=== PATIENT | male | born 1950 | race African-American/Black ===

== ENCOUNTER 2017-03-17 10:57 | Inpatient (IN) | payer MEDICARE, OTHER ==
[2017-03-17] MEDS ORDERED: Albuterol Sulfate 2.5 mg/0.5 ml Neb ONE ×3 (11:18)
[2017-03-17 11:27] LABS: Mean Platelet Volume 6.1 fL (7.4-10.4); Red Blood Cell (RBC) Count 4.82 mill/uL (4.70-6.10); White Blood Cell (WBC) Count 5.3 thou/uL (4.8-10.8)
[2017-03-17 11:39] LABS: ALT (SGPT) 17 U/L (8-55); AST (SGOT) 20 U/L (5-34); Alkaline Phosphatase 74 U/L (40-150); Anion Gap 10 mmol/L (10-20); BUN (Urea Nitrogen) 10 mg/dL (8.4-25.7); Bilirubin, Total 0.4 mg/dL (0.2-1.2); Calc. Creatinine Clearance 0 mL/min (70-130); Calcium 9.9 mg/dL (7.8-10.44); Carbon Dioxide 29 mmol/L (23-31); Chloride 103 mmol/L (98-107); Estimated GFR-MDRD Greater than 90; Globulin 3.7 g/dL (2.4-3.5); Protein, Total 7.7 g/dL (5.8-8.1)
[2017-03-17 11:47] LABS: Neutrophil 39 % (42-75); Reactive Lymphocytes 9 % (0-10)
[2017-03-17 12:08] LABS: Magnesium 1.9 mg/dL (1.6-2.6); Phosphorus 3.4 mg/dL (2.3-4.7)
[2017-03-17 12:15] LABS: Troponin I 0.011 ng/mL (< 0.028)
--- NOTE | 2017-03-17 12:44 | RAD ---
RADIOGRAPH CHEST 1 VIEW: HISTORY: 67-year-old male with dyspnea and productive cough. FINDINGS: There is hyperinflation of the lungs, consistent with COPD. The thoracic aorta is tortuous and ecta tic. There is no evidence of air space density, pneumothorax, or pulmonary edema. The lateral cost ophrenic angles are sharp. There is no cardiomegaly. IMPRESSION: 1. No acute pulmonary findings. 2. Emphysema. 3. Ectasia of thoracic aorta. samm [] POS: EUNICE
[2017-03-17] MEDS ORDERED: Acetaminophen 325 MG TAB PO PRN ×2 (13:09→13:55)
[2017-03-17] MEDS ORDERED: Ondansetron HCl/PF 4 MG/2 ML Vial IVP PRN ×2 (13:10→13:55)
[2017-03-17] MEDS ORDERED: Ondansetron ODT 4 MG TAB PO PRN ×2 (13:10→13:55)
[2017-03-17] MEDS ORDERED: Loratadine 10 MG TAB PO PRN (13:53)
[2017-03-17] MEDS ORDERED: Eucerin (Mineral Oil/Petrolatum,White) 30 gm Jar TOP PRN (13:53)
[2017-03-17] MEDS ORDERED: HYDROcodone/Acetaminophen 5/325 mg Tablet PO PRN (13:53)
[2017-03-17] MEDS ORDERED: Polyethylene Glycol 3350 17 GM Packet PO PRN (13:53)
[2017-03-17] MEDS ORDERED: Calcium Carbonate 500 MG ChewTAB PO PRN (13:55)
[2017-03-17] MEDS ORDERED: Milk Of Magnesia 30 ML UDCUP PO PRN (13:55)
[2017-03-17] MEDS ORDERED: Mag-Al 1200 mg/1200 mg/30 ML UDCUP PO PRN (13:55)
[2017-03-17] MEDS ORDERED: Bisacodyl 10 MG SUPP PR PRN (13:55)
[2017-03-17] MEDS ORDERED: Senokot 8.6 MG TAB PO PRN (13:55)
[2017-03-17 14:21] VITALS: BMI 22.8
[2017-03-17] MEDS: cefTRIAXone\\ROCEPHIN 1 GM in Sodium Chloride 0.9% 100 ML IVPB SCH (15:01)
[2017-03-17] MEDS: Nicotine 14 MG PATCH TD SCH (15:11)
[2017-03-17] MEDS: Azithromycin 500 MG in Sodium Chloride 0.9% 250 ML 250 ML IVPB SCH (15:56)
[2017-03-17] MEDS: Calcium Carbonate + Vit D 1 TAB PO SCH (17:25)
[2017-03-17] MEDS ORDERED: methylPREDNISolone Sod Succ/PF 125 MG/2 ML VIAL IVP SCH (18:00)
[2017-03-17] MEDS: Mometasone/Formoterol 120 PUFF INHALER INH SCH (19:52)
[2017-03-17] MEDS: Docusate 100 MG CAP PO SCH (20:38)
[2017-03-17] MEDS: guaiFENesin ER 600 MG TAB PO SCH (20:38)
[2017-03-17] MEDS: Famotidine 20 MG TAB PO SCH (20:38)
[2017-03-17] MEDS: Enoxaparin Sodium 30 MG/0.3 ML SYRINGE SC SCH (20:39)
--- NOTE | 2017-03-17 22:33 | HP ---
DATE OF ADMISSION: 03/17/2017 PRIMARY CARE PHYSICIAN: Dr. Daniel. CODE STATUS: FULL CODE. SURROGATE DECISION-MAKER: Patient makes his own decisions with the help of his family. CHIEF COMPLAINT: Shortness of breath. HISTORY OF PRESENT ILLNESS: Patient is a 67-year-old male with ongoing tobacco abuse, presented to the emergency room with the above complaints. Over the last 2 to 3 weeks, the patient had developed gradual worsening shortness of breath along with chest tightness and wheezing. His symptoms progressively got worse. Two weeks ago, he was seen by his primary care physician. He received a steroid shot. He also received a flu shot at the same time. His symptoms, however, did not improve. Due to progressive worsening shortness of breath, he called EMS today. He also had some cough productive of very scanty thick mucus. He denies any fevers, chills, orthopnea, paroxysmal nocturnal dyspnea, or leg swelling. He denies similar symptoms in the past. When EMS arrived, his oxygen saturation was 81% on room air. He received multiple nebulizer treatments along with steroids and was brought in to the emergency room. PAST MEDICAL HISTORY: 1. History of asthma during childhood. He has not used inhalers since the age of 18. 2. Fifty pack year smoking. 3. Hypertension, currently not taking any medications. 4. Degenerative joint disease. PAST SURGICAL HISTORY: Reviewed with the patient, bilateral inguinal hernia repair. ALLERGIES: Patient is allergic to IBUPROFEN. CURRENT HOME MEDICATIONS: Patient does not take any prescription medications. REVIEW OF SYSTEMS: The following complete review of systems was negative, unless otherwise mentioned in the HPI or below: Constitutional: Weight loss or gain, ability to conduct usual activities. Skin: Rash, itching. Eyes: Double vision, pain. ENT/Mouth: Nose bleeding, neck stiffness, pain, tenderness. Cardiovascular: Palpitations, dyspnea on exertion, orthopnea. Respiratory: Shortness of breath, wheezing, cough, hemoptysis, fever or night sweats. Gastrointestinal: Poor appetite, abdominal pain, heartburn, nausea, vomiting, constipation, or diarrhea. Genitourinary: Urgency, frequency, dysuria, nocturia. Musculoskeletal: Pain, swelling. Neurologic/Psychiatric: Anxiety, depression. Allergy/Immunologic: Skin rash, bleeding tendency. FAMILY HISTORY: Positive for diabetes mellitus, type 2. SOCIAL HISTORY: Patient has been smoking since the age of 16. He denies alcohol or drug use. PHYSICAL EXAMINATION: VITAL SIGNS: In the emergency room showed temperature of 98.4, respirations in 20s with a pulse rate of 97, blood pressure of 158/82. GENERAL: A 67-year-old male, in [id number] respiratory distress, able to complete short phrases. HEENT: Head: Atraumatic, normocephalic. Sclerae, anicteric. Moist mucous membranes. No oral lesion. NECK: Supple, no JVD appreciated. No carotid bruit. LUNGS: Showed diffuse expiratory wheezing. There was accessory muscle use. Chest movements were symmetrical. Scattered rhonchi were heard. No rales. HEART: S1 and S2 present. Regular rate and rhythm. No murmurs, rubs, or gallops appreciated. ABDOMEN: Soft, nontender, bowel sounds present, no rebound or guarding. EXTREMITIES: No edema or calf tenderness. NEUROLOGIC: Grossly nonfocal, moves all four extremities. PSYCHIATRY: Alert, awake, and oriented x3. SKIN: Warm and dry. LYMPH NODES: No palpable lymph nodes in the neck. PERIPHERAL VASCULAR: Radial pulses palpable bilaterally. MUSCULOSKELETAL: No joint swelling or tenderness. LABORATORY FINDINGS AND IMAGIN. CBC showed WBC of 5.3 with hemoglobin 15.8, hematocrit 50 with platelet count 226. MCV was 104 with MCH of 32.8. 2. Electrolytes in normal range. Cardiac enzymes were normal. BUN 10, creatinine 0.77. 3. Chest x-ray by my review was negative for infiltrate. EKG by my review showed sinus rhythm without significant ST-T wave changes. IMPRESSION: 1. Acute hypoxic respiratory failure. 2. Asthma/questionable chronic obstructive pulmonary disease exacerbation. 3. Tobacco dependence. 4. Hypertension. Currently, not on any medications. 5. Macrocytosis. 6. Degenerative joint disease. PLAN: 1. The patient will be monitored on the medical floor. We will consult Pulmonary in a.m. We will continue oxygen, nebulizer treatment. We will add antibiotics. We will closely monitor the patient with continuous pulse oximetry. If respiratory distress worsens, we will consider transferring to intermediate care unit for noninvasive positive pressure ventilation. Patient was extensively counseled to quit smoking. Nicotine patch will be started per the patient's request. 2. Plan of care was discussed with the patient. He stated understanding. 3. Deep venous thrombosis prophylaxis with Lovenox. 4. Gastrointestinal prophylaxis while on steroids. 5. Patient will require at least 2 to 3 days for stabilization. MTDD
[2017-03-17] MEDS ORDERED: Sterile Water 10 ML ONE (23:52)
[2017-03-18 04:22] LABS: #Lymphocytes 0.7 thou/uL (1.20-3.40); #Monocytes 0.3 thou/uL (0.11-0.59); #Neutrophils 7.8 thou/uL (1.40-6.50); %Basophils 0.2 % (0.0-1.0); %Lymphocytes 7.6 % (21.0-51.0); %Monocytes 3.7 % (0.0-10.0); Hematocrit 45.5 % (42.0-52.0); Red Blood Cell (RBC) Count 4.42 mill/uL (4.70-6.10); White Blood Cell (WBC) Count 8.8 thou/uL (4.8-10.8)
[2017-03-18 04:39] LABS: Anion Gap 14 mmol/L (10-20); BUN (Urea Nitrogen) 9 mg/dL (8.4-25.7); Calc. Creatinine Clearance 100 mL/min (70-130); Calcium 9.4 mg/dL (7.8-10.44); Carbon Dioxide 25 mmol/L (23-31); Chloride 103 mmol/L (98-107); Estimated GFR-MDRD Greater than 90
[2017-03-18] MEDS ORDERED: Sterile Water 10 ML ONE (05:42)
[2017-03-18] MEDS: Mometasone/Formoterol 120 PUFF INHALER INH SCH ×2 (07:38→19:10)
[2017-03-18] MEDS: guaiFENesin ER 600 MG TAB PO SCH ×2 (07:54→19:37)
[2017-03-18] MEDS: Multivit, Therapeutic 1 TAB PO SCH (07:54)
[2017-03-18] MEDS: Famotidine 20 MG TAB PO SCH ×2 (07:54→19:37)
[2017-03-18] MEDS: Calcium Carbonate + Vit D 1 TAB PO SCH ×2 (07:55→17:34)
[2017-03-18] MEDS: Docusate 100 MG CAP PO SCH ×2 (07:55→19:38)
[2017-03-18] MEDS: Diabetic Tussin 200 MG/10 ML UDCUP PO PRN ×2 (07:57→14:10)
--- NOTE | 2017-03-18 13:03 | PDOC.PN ---
- Subjective Encounter Start Date: 03/18/17 Encounter Start Time: 08:45 Patient seen and examined. SOB slightly better. No overnight events - Objective Resuscitation Status: Resuscitation Status FULL:Full Resuscitation MAR Reviewed: Yes Vital Signs & Weight: Vital Signs (12 hours) Temp Pulse Resp BP Pulse Ox 03/18/17 12:00 98.0 F 93 20 139/86 03/18/17 10:20 79 16 95 03/18/17 08:00 97.6 F 83 20 94 L 03/18/17 07:57 97.6 F 83 20 140/85 94 L 03/18/17 07:36 85 16 98 03/18/17 03:24 98.4 F 90 18 160/77 H 93 L 03/18/17 03:00 96 I&O: 03/17/17 03/18/17 03/19/17 06:59 06:59 06:59 Output Total 400 Balance -400 Result Diagrams: 03/18/17 04:02 03/18/17 04:02 Phys Exam - Physical Examination Constitutional: NAD Respiratory: no rhonchi, wheezing present Cardiovascular: RRR, no rub Gastrointestinal: soft, non-tender, positive bowel sounds Musculoskeletal: no edema Neurological: non-focal, moves all 4 limbs Psychiatric: A&O x 3 Dx/Plan - Plan IMPRESSION: 1. Acute hypoxic respiratory failure. 2. Asthma/?chronic obstructive pulmonary disease exacerbation. 3. Tobacco dependence. 4. Hypertension. 5. Macrocytosis. Vit B12/ Folic acid normal 6. Degenerative joint disease. PLAN: * Cont steroids/Atbx/Nebs/O2 * Await Pulmonary input * Cont other meds as below Review of Systems - Review of Systems Constitutional: negative: Fever, Chills, Sweats, Weakness, Malaise, Other Respiratory: Shortness of Breath, SOB with Excertion, Wheezing. negative: Cough , Dry, Hemoptysis, Pleuritic Pain, Sputum Cardiovascular: negative: Chest Pain, Palpitations, Orthopnea, Paroxysmal Noc. Dyspnea, Edema, Light Headedness, Other Neurological: negative: Weakness, Numbness, Incoordination, Change in Speech, Confusion, Seizures, Other - Medications/Allergies Allergies/Adverse Reactions: Allergies Allergy/AdvReac Type Severity Reaction Status Date / Time ibuprofen [From Motrin] AdvReac Intermediate Verified 03/17/17 14:20 Medications: Current Medications Acetaminophen (Tylenol) 650 mg PO Q4H PRN PRN Reason: Headache/Fever or Pain Hydrocodone Bitart/Acetaminophen ([place] 5/325) 1 tab PO Q6H PRN PRN Reason: Moderate Pain (4-6) Last Admin: 03/18/17 03:19 Dose: 1 tab Al Hydroxide/Mg Hydroxide (Maalox) 30 ml PO Q6H PRN PRN Reason: Heartburn or Indigestion Albuterol/Ipratropium (Duoneb) 3 ml NEB [id number] Last Admin: 03/18/17 10:20 Dose: 3 ml Albuterol/Ipratropium (Duoneb) 3 ml NEB [id number] PRN PRN Reason: SOB &/or Wheezing Bisacodyl (Dulcolax) 10 mg TN Q24H PRN PRN Reason: Constipation Calcium Carbonate (Tums) 1,000 mg PO Q4H PRN PRN Reason: Heartburn or Indigestion Calcium/Vitamin D (Caltrate 600 + Vit D) 1 tab PO BID-[facility] Last Admin: 03/18/17 07:55 Dose: 1 tab Docusate Sodium (Colace) 100 mg PO BID [facility] Last Admin: 03/18/17 07:55 Dose: Not Given Enoxaparin Sodium (Lovenox) 30 mg SC 2100 [facility] Last Admin: 03/17/17 20:39 Dose: 30 mg Famotidine (Pepcid) 20 mg PO BID [facility] Last Admin: 03/18/17 07:54 Dose: 20 mg Guaifenesin (Robitussin Sf) 200 mg PO Q4H PRN PRN Reason: Cough Last Admin: 03/18/17 07:57 Dose: 200 mg Guaifenesin (Mucinex) 600 mg PO Q12HR [facility] Last Admin: 03/18/17 07:54 Dose: 600 mg Hydralazine HCl (Apresoline) 5 mg SLOW IVP Q4H PRN PRN Reason: SBP Greater Than 180 Azithromycin 500 mg/ Sodium (Chloride) 250 mls @ 250 mls/hr IVPB Q24HR [facility] Last Admin: 03/17/17 15:56 Dose: 250 mls Ceftriaxone Sodium 1 gm/ (Sodium Chloride) 100 mls @ 200 mls/hr IVPB Q24HR [facility] Last Admin: 03/17/17 15:01 Dose: 100 mls Loratadine (Claritin) 10 mg PO DAILYPRN PRN PRN Reason: Sinus Symptoms Last Admin: 03/18/17 03:19 Dose: 10 mg Magnesium Hydroxide (Milk Of Magnesium) 30 ml PO DAILYPRN PRN PRN Reason: Constipation Methylprednisolone Sodium Succinate (Solu-Medrol) 40 mg IVP Q6HR [facility] Last Admin: 03/18/17 12:14 Dose: 40 mg Mineral Oil/White Petrolatum (Eucerin Cream) 0 gm TOP BIDPRN PRN PRN Reason: Dry Skin Mometasone Furoate/Formoterol Fumar (Dulera 200 Mcg/5 Mcg Inhaler) 2 puff INH BID-[facility] Last Admin: 03/18/17 07:38 Dose: 2 puff Multivitamins (Theragran) 1 tab PO DAILY [facility] Last Admin: 03/18/17 07:54 Dose: 1 tab Nicotine (Nicoderm Patch) 14 mg TD Q24HR [facility] Last Admin: 03/17/17 15:11 Dose: 14 mg Ondansetron HCl (Zofran Odt) 4 mg PO Q6H PRN PRN Reason: Nausea/Vomiting Ondansetron HCl (Zofran) 4 mg IVP Q6H PRN PRN Reason: Nausea/Vomiting Polyethylene Glycol (Miralax) 17 gm PO DAILY PRN PRN Reason: Constipation Senna (Senokot) 2 tab PO HSPRN PRN PRN Reason: Constipation Sodium Chloride (Flush - Normal Saline) 10 ml IVF Q12HR [facility] Last Admin: 03/18/17 07:56 Dose: 10 ml Sodium Chloride (Flush - Normal Saline) 10 ml IVF PRN PRN PRN Reason: Saline Flush Last Admin: 03/18/17 05:48 Dose: 10 ml
--- NOTE | 2017-03-18 13:21 | PRG ---
DATE OF SERVICE: 03/18/2017 SERVICE: Pulmonary Medicine. HISTORY OF PRESENT ILLNESS: The patient is a 67-year-old -[place] male with past medical hi story significant for [id number] history of smoking. 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 He denies any current fevers, chills, nausea or vomiting. He presented to the hospital with a roughly 3-week episode of increasing dyspnea, particularly with exertion that got bad 3 days prior t o admission. He got to the point where he could not even get up to the bathroom without being short -winded. He denies having any orthopnea, paroxysmal nocturnal dyspnea, or significant weight change s. He typically has a daily cough productive of white sputum. More recently, he has been having ex tremely green sputum that has been thick and difficult to get out. He was put in the hospital with antibiotics, steroids, and nebulized medication. He feels much improved at this point. PAST MEDICAL HISTORY: 1. Childhood history of asthma. 2. Tobacco abuse. 3. Hypertension. 4. Degenerative joint disease. PAST SURGICAL HISTORY: Bilateral inguinal hernia repair. ALLERGIES: IBUPROFEN. MEDICATIONS: List of his medications was reviewed. Multiple updates were made. FAMILY HISTORY: Noncontributory. SOCIAL HISTORY: Has a [id number] history of smoking. He denies any current alcohol or illicit dr ug use. He has no exposure to chemicals, asbestos or tuberculosis outside of his work over a [employer]. REVIEW OF SYSTEMS: General, head, ears, eyes, nose, throat, cardiovascular, respiratory, GI, , mu sculoskeletal, neurologic and skin is negative except as mentioned in the HPI. PHYSICAL EXAMINATION: VITAL SIGNS: Afebrile, pulse 93, blood pressure 139/86, respirations 20, saturation 95% on 1 liter nasal cannula. HEENT: Normocephalic, atraumatic. Sclerae are white, conjunctivae pink. Oral mucosa is moist with out lesions. LUNGS: Decent air entry. There is a prolonged expiratory phase with both rhonchi and wheezing pres ent. I do not appreciate any crackles in the bibasilar regions. HEART: Normal rate, regular. ABDOMEN: Soft, nontender, nondistended. Bowel sounds positive. MUSCULOSKELETAL: No cyanosis or clubbing. No pitting in the bilateral lower extremities. NEUROLOGIC: Grossly nonfocal. LABORATORY DATA: WBC 8.8, hemoglobin 14.5, and platelets 207,000. Basic metabolic profile, folate, B12, troponins, BMP, magnesium, phosphorus, and liver function studies are unremarkable. IMAGING: Chest x-ray demonstrates findings consistent with some degree of emphysema. There is no a cute cardiopulmonary abnormality otherwise identified. ASSESSMENT: 1. Chronic obstructive pulmonary disease with acute exacerbation. 2. Tobacco abuse. 3. Acute hypoxic respiratory failure. PLAN: I will deescalate the steroids to 40 mg of prednisone to be taken on a daily basis. We will limit his duration of therapy to 5 days. Antibiotics will be transitioned over to p.o. and can be i nterrupted after 5-7 days. We will continue frequent nebulized medications. On discharge from the hospital, he can go out on a p.r.n. albuterol inhaler. I would like to see me in clinic in 2-4 week s in the outpatient setting, so that we can clarify what his underlying lung disease is as well as t he severity but this is not the right time or place for that. I will continue to follow for 1 or 2 additional days, but he is off oxygen tomorrow and able to ambulate with greater ease, we can consid er him for discharge.
[2017-03-18] MEDS: Nicotine 14 MG PATCH TD SCH (14:12)
[2017-03-18] MEDS: cefTRIAXone\\ROCEPHIN 1 GM in Sodium Chloride 0.9% 100 ML IVPB SCH (14:12)
[2017-03-18] MEDS: Azithromycin 500 MG in Sodium Chloride 0.9% 250 ML 250 ML IVPB SCH (15:18)
[2017-03-18] MEDS ORDERED: Loratadine 10 MG TAB PO SCH (17:00)
[2017-03-18] MEDS: Fluticasone Propionate Nasal Spray 16 gm Bottle NASAL SCH (17:34)
[2017-03-18] MEDS: Enoxaparin Sodium 30 MG/0.3 ML SYRINGE SC SCH (19:37)
[2017-03-19] MEDS: Mometasone/Formoterol 120 PUFF INHALER INH SCH ×2 (07:44→18:29)
[2017-03-19] MEDS: predniSONE 20 MG TAB PO SCH (08:42)
[2017-03-19] MEDS: Multivit, Therapeutic 1 TAB PO SCH (08:42)
[2017-03-19] MEDS: Famotidine 20 MG TAB PO SCH ×2 (08:42→21:15)
[2017-03-19] MEDS: Docusate 100 MG CAP PO SCH ×3 (08:43→21:14)
[2017-03-19] MEDS: guaiFENesin ER 600 MG TAB PO SCH ×2 (08:43→21:15)
[2017-03-19] MEDS: Azithromycin 250 MG TAB PO SCH (08:44)
[2017-03-19] MEDS: Loratadine 10 MG TAB PO SCH (08:44)
[2017-03-19] MEDS: Calcium Carbonate + Vit D 1 TAB PO SCH ×2 (08:44→17:36)
[2017-03-19] MEDS: Diabetic Tussin 200 MG/10 ML UDCUP PO PRN ×2 (08:51→14:49)
--- NOTE | 2017-03-19 11:31 | PRG ---
DATE OF SERVICE: 03/19/2017 SERVICE: Pulmonary Medicine. INTERVAL HISTORY: The patient is doing well from a cardiovascular and respiratory standpoint. He d enies any current shortness of breath or chest discomfort. He had not have any coughing since yeste rday. That being said, whenever they do occur, he is terrified of them. As such, he does not feel comfortable leaving this morning. He would like to see how things go during the daytime and if he c ontinues to make improvement, he will consider going home this afternoon. That being said, there is nothing that we were doing for him here that he can do from himself at home. He understands that, but we would feel more comfortable possibly staying an additional day which I think is reasonable. PHYSICAL EXAMINATION: VITAL SIGNS: Afebrile, pulse 88, blood pressure 163/84, respirations 16, saturation 96% on room air . GENERAL: The patient is awake and alert, in no apparent distress. LUNGS: Improved air entry with prolonged expiratory phase and wheezing. Less rhonchi are present. No crackles. HEART: Normal rate, regular. ABDOMEN: Soft, nontender, nondistended. Bowel sounds positive. MUSCULOSKELETAL: No cyanosis or clubbing. No pitting in the bilateral lower extremities. NEUROLOGIC: Grossly nonfocal. ASSESSMENT: 1. Chronic obstructive pulmonary disease with acute exacerbation. 2. Tobacco abuse. 3. Acute hypoxic respiratory failure, resolved. PLAN: At this point, the patient is stable for transition out of the hospital. I would like for hi m to come visit me in clinic in 2-4 weeks, so that we can identify his underlying lung disease and g etting him on long-acting medicines if indicated. He should go out on DuoNeb to be used on a p.r.n. basis in the interim. He will likely need to be set up with a nebulizer as well. Complete steroid s and antibiotics for a total duration of 5 days. I will continue to follow if he remains in house.
[2017-03-19] MEDS: Nicotine 14 MG PATCH TD SCH (14:49)
--- NOTE | 2017-03-19 17:08 | PDOC.PN ---
- Subjective Encounter Start Date: 03/19/17 Encounter Start Time: 08:00 Patient seen and examined. No overnight events. SOB on mild exertion - Objective Resuscitation Status: Resuscitation Status FULL:Full Resuscitation MAR Reviewed: Yes Vital Signs & Weight: Vital Signs (12 hours) Temp Pulse Resp BP Pulse Ox 03/19/17 15:12 97.5 F L 96 18 164/81 H 93 L 03/19/17 13:02 86 16 95 03/19/17 11:30 98.2 F 85 18 168/94 H 96 03/19/17 08:45 97.6 F 88 16 163/84 H 96 03/19/17 07:44 88 16 96 03/19/17 07:43 88 16 96 03/19/17 07:20 97.6 F 81 20 180/101 H 92 L I&O: 03/18/17 03/19/17 03/20/17 06:59 06:59 06:59 Intake Total 1310 Output Total 400 Balance -400 1310 Result Diagrams: 03/18/17 04:02 03/18/17 04:02 Phys Exam - Physical Examination Constitutional: NAD Respiratory: no rales, wheezing present Cardiovascular: RRR, no rub Gastrointestinal: soft, non-tender, positive bowel sounds Musculoskeletal: no edema Neurological: non-focal, moves all 4 limbs Psychiatric: A&O x 3 Dx/Plan - Plan cont current plan of care, continue antibiotics, DVT proph w/lovenox, DVT proph w/SCDs IMPRESSION: 1. Acute hypoxic respiratory failure. improving 2. Asthma/?chronic obstructive pulmonary disease exacerbation. 3. Tobacco dependence. Counselled. 4. Hypertension. 5. Macrocytosis. Vit B12/ Folic acid normal 6. Degenerative joint disease. PLAN: * Cont steroids/Nebs/O2 * Pulmonary following * Patient does not feel comfortable going home today. * Cont other meds as below * Will arrange home nebulizer with albuterol nebulization PRN Review of Systems - Review of Systems Constitutional: negative: Fever, Chills, Sweats, Weakness, Malaise, Other Respiratory: Cough, Dry, SOB with Excertion, Wheezing. negative: Shortness of Breath, Hemoptysis, Pleuritic Pain, Sputum Cardiovascular: negative: Chest Pain, Palpitations, Orthopnea, Paroxysmal Noc. Dyspnea, Edema, Light Headedness, Other Gastrointestinal: negative: Nausea, Vomiting, Abdominal Pain, Diarrhea, Constipation, Melena, Hematochezia, Other - Medications/Allergies Allergies/Adverse Reactions: Allergies Allergy/AdvReac Type Severity Reaction Status Date / Time ibuprofen [From Motrin] AdvReac Intermediate Verified 03/17/17 14:20 Medications: Current Medications Acetaminophen (Tylenol) 650 mg PO Q4H PRN PRN Reason: Headache/Fever or Pain Last Admin: 03/18/17 19:36 Dose: 650 mg Hydrocodone Bitart/Acetaminophen ([place] 5/325) 1 tab PO Q6H PRN PRN Reason: Moderate Pain (4-6) Last Admin: 03/18/17 03:19 Dose: 1 tab Al Hydroxide/Mg Hydroxide (Maalox) 30 ml PO Q6H PRN PRN Reason: Heartburn or Indigestion Albuterol/Ipratropium (Duoneb) 3 ml NEB [id number] PRN PRN Reason: SOB &/or Wheezing Albuterol/Ipratropium (Duoneb) 3 ml NEB [id number] [facility] Last Admin: 03/19/17 13:02 Dose: 3 ml Azithromycin (Zithromax) 250 mg PO DAILY [facility] Stop: 03/22/17 09:01 Last Admin: 03/19/17 08:44 Dose: 250 mg Bisacodyl (Dulcolax) 10 mg [place] Q24H PRN PRN Reason: Constipation Calcium Carbonate (Tums) 1,000 mg PO Q4H PRN PRN Reason: Heartburn or Indigestion Calcium/Vitamin D (Caltrate 600 + Vit D) 1 tab PO BID-WM [facility] Last Admin: 03/19/17 08:44 Dose: 1 tab Docusate Sodium (Colace) 100 mg PO BID [facility] Last Admin: 03/19/17 08:50 Dose: Not Given Enoxaparin Sodium (Lovenox) 30 mg SC 2100 [facility] Last Admin: 03/18/17 19:37 Dose: 30 mg Famotidine (Pepcid) 20 mg PO BID [facility] Last Admin: 03/19/17 08:42 Dose: 20 mg Fluticasone Propionate (Flonase Nasal [place]) 0 gm NASAL Q24H [facility] Last Admin: 03/18/17 17:34 Dose: 2 spr Guaifenesin (Robitussin Sf) 200 mg PO Q4H PRN PRN Reason: Cough Last Admin: 03/19/17 14:49 Dose: 200 mg Guaifenesin (Mucinex) 1,200 mg PO Q12HR [facility] Last Admin: 03/19/17 08:43 Dose: 1,200 mg Hydralazine HCl (Apresoline) 5 mg SLOW IVP Q4H PRN PRN Reason: SBP Greater Than 180 Loratadine (Claritin) 10 mg PO DAILY [facility] Last Admin: 03/19/17 08:44 Dose: 10 mg Magnesium Hydroxide (Milk Of Magnesium) 30 ml PO DAILYPRN PRN PRN Reason: Constipation Mineral Oil/White Petrolatum (Eucerin Cream) 0 gm TOP BIDPRN PRN PRN Reason: Dry Skin Mometasone Furoate/Formoterol Fumar (Dulera 200 Mcg/5 Mcg Inhaler) 2 puff INH BID-RT [facility] Last Admin: 03/19/17 07:44 Dose: 2 puff Multivitamins (Theragran) 1 tab PO DAILY [facility] Last Admin: 03/19/17 08:42 Dose: 1 tab Nicotine (Nicoderm Patch) 14 mg TD Q24HR [facility] Last Admin: 03/19/17 14:49 Dose: 14 mg Ondansetron HCl (Zofran Odt) 4 mg PO Q6H PRN PRN Reason: Nausea/Vomiting Ondansetron HCl (Zofran) 4 mg IVP Q6H PRN PRN Reason: Nausea/Vomiting Polyethylene Glycol (Miralax) 17 gm PO DAILY PRN PRN Reason: Constipation Prednisone (Prednisone) 40 mg PO DAILY [facility] Stop: 03/22/17 09:01 Last Admin: 03/19/17 08:42 Dose: 40 mg Senna (Senokot) 2 tab PO HSPRN PRN PRN Reason: Constipation Sodium Chloride (Flush - Normal Saline) 10 ml IVF Q12HR [facility] Last Admin: 03/19/17 08:45 Dose: 10 ml Sodium Chloride (Flush - Normal Saline) 10 ml IVF PRN PRN PRN Reason: Saline Flush Last Admin: 03/18/17 05:48 Dose: 10 ml
[2017-03-19] MEDS: Fluticasone Propionate Nasal Spray 16 gm Bottle NASAL SCH (17:36)
[2017-03-19] MEDS: Enoxaparin Sodium 30 MG/0.3 ML SYRINGE SC SCH (21:16)
[2017-03-20] MEDS: Mometasone/Formoterol 120 PUFF INHALER INH SCH ×2 (06:17→18:11)
[2017-03-20] MEDS: Loratadine 10 MG TAB PO SCH (08:53)
[2017-03-20] MEDS: Calcium Carbonate + Vit D 1 TAB PO SCH ×2 (08:53→17:32)
[2017-03-20] MEDS: Famotidine 20 MG TAB PO SCH (08:53)
[2017-03-20] MEDS: Azithromycin 250 MG TAB PO SCH (08:53)
[2017-03-20] MEDS: predniSONE 20 MG TAB PO SCH (08:53)
[2017-03-20] MEDS: Multivit, Therapeutic 1 TAB PO SCH (08:53)
[2017-03-20] MEDS: guaiFENesin ER 600 MG TAB PO SCH (08:53)
[2017-03-20] MEDS: Docusate 100 MG CAP PO SCH (08:54)
--- NOTE | 2017-03-20 09:55 | PRG ---
DATE OF SERVICE: 03/20/2017 SERVICE: Pulmonary Medicine INTERVAL HISTORY: The patient is doing great from a cardiovascular and respiratory standpoint. He denies any current shortness of breath. He had a coughing spell this morning, but he did not get ch oked up. He feels much more comfortable today and indicates that he should be able to do just fine in the home setting. Otherwise, there were no events. PHYSICAL EXAMINATION: VITAL SIGNS: Afebrile, pulse 90, blood pressure 142/94, respirations 18, saturation 95% on room air . GENERAL: The patient is awake, alert, in no apparent distress. LUNGS: There is excellent air entry and a prolonged expiratory phase. Wheezing is present at the e nd of expiration. I heard some coarser breath sounds as well, but there was absolutely no crackles present in the dependent regions. HEART: Normal rate, regular. ABDOMEN: Soft, nontender, nondistended. Bowel sounds positive. MUSCULOSKELETAL: No cyanosis or clubbing. No pitting in the bilateral lower extremities. NEUROLOGIC: Grossly nonfocal. ASSESSMENT: 1. Acute hypoxic respiratory failure, resolved. 2. Chronic obstructive pulmonary disease with acute exacerbation. 3. Tobacco abuse. PLAN: I would like to see him in the outpatient setting in 2-4 weeks so that we can are identify hi s underlying lung process. Continue antibiotics and steroids to complete a total duration of 5 days . He can go out on p.r.n. albuterol in either the nebulize and/or MDI form. We will evaluate for C OPD with of pulmonary function studies in the outpatient setting and consider him for long-acting th erapy.
--- NOTE | 2017-03-20 14:48 | DIS ---
DISCHARGE DATE: 03/20/2017 DISCHARGE DISPOSITION: Home. FOLLOWUP: 1. Follow up with primary care physician in 1 week. Patient plans to see Dr. Rogerio Daniel. 2. Follow up with Dr. Kane Ogden in next 10 days. ALLERGIES: Patient is allergic to IBUPROFEN. The patient was seen and examined on the day of discharge. Patient is currently on room air with O2 saturation of 96%. DISCHARGE MEDICATIONS: Albuterol nebulizing solution as needed, albuterol inhaler as needed, azithr omycin 250 mg daily for the next 3 days, multivitamin daily, Mucinex 600 mg twice daily for the next 10 days, prednisone taper. INPATIENT JOINT SUPERVISOR: Pulmonary, Dr. Ogden. BRIEF HOSPITAL COURSE: The patient is a 67-year-old male with asthma with ongoing tobacco abuse, pr esented to the hospital with shortness of breath. Please refer to the history and physical dated on 03/17/2017 for further details. The patient was admitted to the hospital with the diagnosis of acute hypoxic respiratory failure. H is O2 saturation by EMS was 81% on room air. He was placed on antibiotics, steroids, oxygen with ne bulization with good response. Patient was evaluated by Pulmonary, Dr. Ogden. He will follow up with Dr. Ogden as outpatient for further workup for his respiratory failure. He has been cleared by Pulmonary for discharge. FINAL DIAGNOSES: 1. Acute hypoxic respiratory failure, improved. 2. Asthma/suspected chronic obstructive pulmonary disease exacerbation. 3. Tobacco dependence. Patient was extensively counseled. 4. Hypertension, currently not on any medications. Controlled. 5. Degenerative joint disease. 6. Macrocytosis. His vitamin B12, folic acid was normal. SIGNIFICANT LABORATORY DATA: 1. MCV 104 with hemoglobin 15.8. 2. BUN 10, creatinine 0.7. 3. Cardiac enzymes were normal. 4. BNP 84.8. 5. Vitamin B12 of 438. 6. Folic acid 10.7. 7. Chest x-ray was negative for infiltrate. Patient was extensively counseled to quit smoking agai n. He was advised to seek medical attention if he develops worsening shortness of breath.
[2017-03-20 17:22] VITALS: BP 149/85; TEMP 98.1
[2017-03-20] MEDS: Nicotine 14 MG PATCH TD SCH (17:32)
== END 2017-03-20 18:20 | disposition home or self-care (01) | DRG 190 ==
LOC: ERS 10:57 → ONC 12:51
PROVIDERS: ADMIT Internal Medicine; ATTEND Internal Medicine
DX: J44.1 Chronic obstructive pulmonary disease with (acute) exacerbation (principal); J96.01 Acute respiratory failure with hypoxia; I10 Essential (primary) hypertension; F17.210 Nicotine dependence, cigarettes, uncomplicated; M19.90 Unspecified osteoarthritis, unspecified site; Z88.6 Allergy status to analgesic agent; D75.89 Other specified diseases of blood and blood-forming organs
CPT/HCPCS: 36415; 71010; 80048; 80053; 82553; 82607; 82746; 83735; 83880; 84100; 84484; 85025; 93005; 94640; 94644; 94664; 94760; A4216; J0360; J0456; J0696; J1650; J2920; J7050; J7506; J7611; J7620

== ENCOUNTER 2017-10-01 16:45 | Inpatient (IN) | payer MEDICARE ==
[2017-10-01 17:23] LABS: #Basophils 0.1 thou/uL (0.0-0.2); #Eosinphils 0.2 thou/uL (0.0-0.7); #Lymphocytes 1.8 thou/uL (1.20-3.40); #Monocytes 0.6 thou/uL (0.11-0.59); #Neutrophils 3.6 thou/uL (1.40-6.50); %Basophils 1.3 % (0.0-1.0); %Eosinophils 2.6 % (0.0-10.0); %Lymphocytes 28.5 % (21.0-51.0); %Monocytes 10.2 % (0.0-10.0); %Neutrophils 57.4 % (42.0-75.0); Mean Corpuscular HGB CONC 33.5 g/dL (32.0-36.0); Mean Corpuscular Hemoglobin 33.3 pg (27.0-31.0); Mean Corpuscular Volume 99.3 fl (80.0-94.0); Mean Platelet Volume 5.8 fL (7.4-10.4); Platelet Count 221 thou/uL (130-400); RBC Distribution Width 13.3 % (11.5-14.5); Red Blood Cell (RBC) Count 4.81 mill/uL (4.70-6.10); White Blood Cell (WBC) Count 6.3 thou/uL (4.8-10.8)
[2017-10-01] MEDS ORDERED: Magnesium Sulfate 2 GM/100 ML BAG ONE (17:32)
[2017-10-01] MEDS ORDERED: methylPREDNISolone Sod Succ/PF 125 MG/2 ML VIAL ONE (17:32)
[2017-10-01 17:45] LABS: ALT (SGPT) 15 U/L (8-55); AST (SGOT) 22 U/L (5-34); Albumin 4.4 g/dL (3.4-4.8); Alkaline Phosphatase 75 U/L (40-150); Anion Gap 13 mmol/L (10-20); BUN (Urea Nitrogen) 8 mg/dL (8.4-25.7); Bilirubin, Total 0.6 mg/dL (0.2-1.2); Calc. Creatinine Clearance 0 mL/min (70-130); Calcium 9.8 mg/dL (7.8-10.44); Carbon Dioxide 29 mmol/L (23-31); Chloride 96 mmol/L (98-107); Estimated GFR-MDRD Greater than 90; Globulin 3.1 g/dL (2.4-3.5); Glucose 98 mg/dL (80-115); Potassium 4.1 mmol/L (3.5-5.1); Protein, Total 7.5 g/dL (5.8-8.1); Sodium 134 mmol/L (136-145)
[2017-10-01 17:49] LABS: Troponin I 0.056 ng/mL (< 0.028)
[2017-10-01 17:56] LABS: CKMB 7.7 ng/mL (0-6.6)
[2017-10-01] MEDS ORDERED: Acetaminophen 325 MG TAB PO PRN (18:50)
[2017-10-01] MEDS ORDERED: Guaifenesin DM 100-10/5 ML UDCUP PO PRN (18:50)
--- NOTE | 2017-10-01 19:04 | RAD ---
AP VIEW OF THE CHEST: 10/01/17 INDICATION: Cough. IMPRESSION: The lungs are hyperinflated but clear. No pleural effusion or pneumothorax is evident. The cardiomedi astinal silhouette is within normal limits. POS: [facility]
[2017-10-01 21:19] LABS: Troponin I 0.045 ng/mL (< 0.028)
--- NOTE | 2017-10-01 21:54 | HP ---
REASON FOR ADMISSION: COPD exacerbation, demand ischemia. HISTORY OF PRESENTING ILLNESS: The patient gives history of shortness of breath , which started from Saturday. He had dry cough initially. On Saturday, he started to have runny nose and started to have sputum production, which was sánchez in color. No fever. The shortness of breath was gradually getting worse to the point he had orthopnea and was getting extremely short of breath even for mobilizing himself inside the house. He finally went to [facility] this morning and he was sent over here via EMS for COPD exacerbation. No complaints of chest pain as such. No complaints of palpitations or PND. The patient has been smoking for nearly 40 years or so. He says he has cut down to 10 cigarettes a day now. He also works part-time as a housekeeper cleaning cooking and has not been working from last 3 days due to worsening shortness of breath. PAST MEDICAL AND SURGICAL HISTORY: COPD, inguinal hernia repair. CURRENT MEDICATIONS: None. ALLERGIES: Allergic to MOTRIN. PERSONAL HISTORY: Smokes 10 cigarettes a day, but has been smoking so for last 40 years or so. Drinks 2 beers daily on alternate days. Does not abuse drugs. Works as a [employer] part-time. FAMILY HISTORY: Mother lived up to 94 years. She had history of asthma. Father at the age of 85 years, mostly from old age. He also had prostate cancer. The patient has 2 sons and he is from his . Power of securities attorney is Mr. Constantin Marcus, his brother. CODE STATUS: FULL. REVIEW OF SYSTEMS: The following complete review of systems was negative, unless otherwise mentioned in the HPI or below: Constitutional: Weight loss or gain, ability to conduct usual activities. Skin: Rash, itching. Eyes: Double vision, pain. ENT/Mouth: Nose bleeding, neck stiffness, pain, tenderness. Cardiovascular: Palpitations, dyspnea on exertion, orthopnea. Respiratory: Shortness of breath, wheezing, cough, hemoptysis, fever or night sweats. Gastrointestinal: Poor appetite, abdominal pain, heartburn, nausea, vomiting, constipation, or diarrhea. Genitourinary: Urgency, frequency, dysuria, nocturia. Musculoskeletal: Pain, swelling. Neurologic/Psychiatric: Anxiety, depression. Allergy/Immunologic: Skin rash, bleeding tendency. PHYSICAL EXAMINATION: GENERAL: The patient is a 67-year-old male who is currently in mild shortness of breath. VITAL SIGNS: Blood pressure 120/78, pulse 100 per minute, respiratory rate 22 per minute, temperature 98.2 degrees Fahrenheit, saturating 99% on room air. NECK: Supple, no elevated JVD. HEENT: Eyes: Extraocular muscles intact. Pupils reacting to light. Oral cavity, mucous membranes are dry. No exudates or congestion. CARDIOVASCULAR: S1, S2 heard. Regular rhythm. RESPIRATORY: Air entry 1+ bilateral. Scattered wheezes plus bilateral. ABDOMEN: Soft, bowel sounds heard. No tenderness, rigidity, or guarding. EXTREMITIES: No peripheral edema or calf tenderness. VASCULAR SYSTEM: Peripheral pulses 1+ bilateral. No ischemic ulcerations or gangrene. CENTRAL NERVOUS SYSTEM: The patient has bilateral claw hand, which he says it has been there for the last 20 years or so and says it is due to his work. 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 No prior history of CVA. He moves all 4 extremities. No focal signs. PSYCHIATRIC: The patient's mood is euthymic. No hallucinations or delusions. LABORATORY AND X-RAY FINDINGS: CK-MB is 7.7. Troponin I is 0.05. BNP is 104. Albumin is 4.4. Chest x-ray done shows signs of hyperinflation. No acute infiltrate by my review. BUN 8, creatinine 0.8, sodium 134, serum bicarbonate 29. White count of 6, H&H 16 and 47, platelet count 221, MCV is 99 with 57% neutrophils. EKG done shows normal sinus rhythm at 94 beats per minute. There are signs of mild LVH seen. CLINICAL IMPRESSION AND PLAN: The patient will be admitted to telemetry for acute chronic obstructive pulmonary disease exacerbation and demand ischemia. He will be placed on DuoNeb, Solu-Medrol 40 mg IV q.6 hourly, and gentle hydration with normal saline at 50 mL per hour for a total of 2 liters to help with bringing up his sputum, Augmentin 875 mg twice daily for chronic obstructive pulmonary disease exacerbation. We will obtain echo with 2D Doppler for left ventricular function and trend his troponin. The patient has not had any prior cardiac workup. He does not have a regular primary care doctor that he follows up with. We will continue to closely monitor him on telemetry for now. MARCELO
[2017-10-01] MEDS: Nicotine 14 MG PATCH TD SCH (21:56)
[2017-10-01] MEDS: Amoxicillin/Potassium Clav 875 MG TAB PO SCH (21:56)
[2017-10-01] MEDS: Sodium Chloride 0.9% 1,000 ML IV SCH (21:56)
[2017-10-01] MEDS: Famotidine 20 MG TAB PO SCH (21:56)
[2017-10-01] MEDS: guaiFENesin ER 600 MG TAB PO SCH (21:56)
[2017-10-01 23:02] VITALS: BMI 21.7
[2017-10-02 00:07] LABS: Troponin I 0.045 ng/mL (< 0.028)
[2017-10-02 05:36] LABS: Anion Gap 13 mmol/L (10-20); BUN (Urea Nitrogen) 9 mg/dL (8.4-25.7); Calc. Creatinine Clearance 92 mL/min (70-130); Calcium 9.3 mg/dL (7.8-10.44); Carbon Dioxide 26 mmol/L (23-31); Cardiac Risk 3.7 (Less than 4.5); Chloride 99 mmol/L (98-107); Cholesterol 177 mg/dl (< 200 Desired); Estimated GFR-MDRD Greater than 90; Glucose 143 mg/dL (80-115); HDL Cholesterol 48 mg/dL (>60 Neg Risk); LDL Cholesterol, Calculated 122 mg/dL; Potassium 4.2 mmol/L (3.5-5.1); Sodium 134 mmol/L (136-145); Triglycerides 35 mg/dL (Less than 150)
[2017-10-02 06:06] LABS: Band 3 % (5-11); Lymphocytes 16 % (21-51); MDiff Complete? YES; Mean Corpuscular HGB CONC 31.9 g/dL (32.0-36.0); Mean Corpuscular Hemoglobin 32.3 pg (27.0-31.0); Mean Platelet Volume 6.2 fL (7.4-10.4); Monocytes 3 % (0-10); Neutrophil 78 % (42-75); Platelet Count 234 thou/uL (130-400); RBC Distribution Width 13.3 % (11.5-14.5); Red Blood Cell (RBC) Count 4.64 mill/uL (4.70-6.10); White Blood Cell (WBC) Count 2.6 thou/uL (4.8-10.8)
[2017-10-02 06:08] LABS: Amphetamine Not Detected (NotDetected); Barbiturates Screen Not Detected (NotDetected); Benzodiazepine Screen Not Detected (NotDetected); Cocaine Metabolite Screen Detected (NotDetected); Medtox Control Line Valid? VALID (VALID); Medtox Reader # READER 4; Methadone Not Detected (NotDetected); Methamphetamine Not Detected (NotDetected); Opiate Screen Not Detected (NotDetected); Oxycodone Screen Not Detected (NotDetected); Phencyclidine (PCP) Not Detected (NotDetected); THC/Cannabinoid Screen Not Detected (NotDetected); Tricyclic Screen Not Detected (NotDetected)
--- NOTE | 2017-10-02 09:00 | PDOC.PN ---
- Subjective Encounter Start Date: 10/02/17 Encounter Start Time: 08:59 Mr. Marcus was seen today in follow-up of COPD exacerbation. He says he is doing a little better, and the phlem is breaking up more, but he is still short of breath, with wheezing. - Objective Resuscitation Status: Resuscitation Status FULL:Full Resuscitation MAR Reviewed: Yes Vital Signs & Weight: Vital Signs (12 hours) Temp Pulse Resp BP Pulse Ox 10/02/17 06:47 96 16 10/02/17 04:00 97.8 F 87 18 147/82 H 95 10/02/17 00:00 97.9 F 86 18 131/84 92 L 10/01/17 22:27 91 22 H 94 L Weight Weight 151 lb 4.8 oz I&O: 10/01/17 10/02/17 10/03/17 06:59 06:59 06:59 Intake Total 588 Output Total 750 Balance -162 Result Diagrams: 10/02/17 05:00 10/02/17 05:00 Phys Exam - Physical Examination HEENT: PERRLA Respiratory: no rales, wheezing present + wheezing and rhonchi bilaterally Cardiovascular: RRR, no significant murmur, no rub Gastrointestinal: soft, non-tender, no distention, positive bowel sounds Musculoskeletal: edema present Dx/Plan (1) Acute and chronic respiratory failure Code(s): J96.20 - ACUTE AND CHR RESP FAILURE, UNSP W HYPOXIA OR HYPERCAPNIA Status: Acute (2) COPD exacerbation Code(s): J44.1 - CHRONIC OBSTRUCTIVE PULMONARY DISEASE W (ACUTE) EXACERBATION Status: Acute - Plan * Acute on chronic respiratory failure- improved, but yet ready for discharge * Will cut back his IV steroids some * Echo has been ordered, and is pending * Continue Augmentin * Ambulate.
[2017-10-02] MEDS: Amoxicillin/Potassium Clav 875 MG TAB PO SCH ×2 (09:02→20:40)
[2017-10-02] MEDS: Famotidine 20 MG TAB PO SCH ×2 (09:02→20:40)
[2017-10-02] MEDS: Enoxaparin Sodium 40 MG/0.4 ML SYRINGE SC SCH (09:02)
[2017-10-02] MEDS: guaiFENesin ER 600 MG TAB PO SCH ×2 (09:03→20:40)
[2017-10-02] MEDS: Sodium Chloride 0.9% 1,000 ML IV SCH (17:21)
[2017-10-02] MEDS: Nicotine 14 MG PATCH TD SCH (20:39)
[2017-10-03] MEDS ORDERED: Saccharomyces boulardii 250 MG CAP PO SCH (09:00)
[2017-10-03] MEDS: Enoxaparin Sodium 40 MG/0.4 ML SYRINGE SC SCH (09:13)
[2017-10-03] MEDS: guaiFENesin ER 600 MG TAB PO SCH (09:14)
[2017-10-03] MEDS: Amoxicillin/Potassium Clav 875 MG TAB PO SCH (09:14)
[2017-10-03] MEDS: Famotidine 20 MG TAB PO SCH (09:14)
--- NOTE | 2017-10-03 13:43 | PDOC.PN ---
- Subjective Encounter Start Date: 10/03/17 Encounter Start Time: 13:41 Mr. Marcus was seen today in follow-up of COPD. He is feeling better, but notes some nasal congestion - Objective Resuscitation Status: Resuscitation Status FULL:Full Resuscitation MAR Reviewed: Yes Vital Signs & Weight: Vital Signs (12 hours) Temp Pulse Resp BP Pulse Ox 10/03/17 13:37 83 16 100 10/03/17 12:51 97.7 F 84 18 161/89 H 94 L 10/03/17 09:08 97.8 F 85 18 132/81 95 10/03/17 06:42 89 16 96 10/03/17 04:00 97.8 F 83 18 164/95 H 92 L Weight Weight 161 lb 1.6 oz I&O: 10/02/17 10/03/17 10/04/17 06:59 06:59 06:59 Intake Total 588 3458 Output Total 750 3755 Balance -162 -297 Result Diagrams: 10/02/17 05:00 10/02/17 05:00 Additional Labs: Accuchecks 10/03/17 05:27 POC Glucose 126 H Phys Exam - Physical Examination HEENT: PERRLA Respiratory: wheezing present + minimal wheezing, no rhonchi or rales Cardiovascular: RRR, no significant murmur, no rub Gastrointestinal: soft, non-tender, no distention, positive bowel sounds Musculoskeletal: no edema Dx/Plan (1) Acute and chronic respiratory failure Code(s): J96.20 - ACUTE AND CHR RESP FAILURE, UNSP W HYPOXIA OR HYPERCAPNIA Status: Acute (2) COPD exacerbation Code(s): J44.1 - CHRONIC OBSTRUCTIVE PULMONARY DISEASE W (ACUTE) EXACERBATION Status: Acute - Plan * COPD exacerbation- he has improved with treatment, and is stable for discharge home..
[2017-10-03 19:40] VITALS: BP 155/96; TEMP 98
--- NOTE | 2017-10-04 00:30 | DIS ---
DATE OF ADMISSION: 10/01/2017 DATE OF DISCHARGE: 10/03/2017 PRIMARY CARE PHYSICIAN: The patient currently does not have a primary care physician. DISCHARGE DISPOSITION: Home. PRIMARY DISCHARGE DIAGNOSES: 1. Acute respiratory failure secondary to chronic obstructive pulmonary disease. 2. Chronic obstructive pulmonary disease exacerbation. 3. Elevated blood pressure without diagnosis of hypertension. 4. Chronic diastolic heart failure by echo. DISCHARGE MEDICATIONS: Included Augmentin 875 mg 1 p.o. twice a day for 5 days, Symbicort 80/4.5 one puff twice a day, multivitamin once a day, albuterol HFA 1-2 inhalations 4 times a day as needed, an d prednisone taper over 4 days. CODE STATUS: FULL CODE. ALLERGIES: To IBUPROFEN. HOSPITAL COURSE: Mr. Marcus is a pleasant a 67-year-old gentleman who was admitted with shortness of breath, wheezing, and cough. He was found to have a COPD exacerbation. Chest x-ray was negative fo r pneumonia or pleural effusion or pulmonary edema. He was treated with IV steroids, antibiotics, an d DuoNebs and improved over the course of the next couple of days. An echo was done to rule out sign ificant heart failure or systolic dysfunction. His systolic function was normal on echo, but did hav e some evidence of diastolic dysfunction. He did not appear to be volume overloaded. He will theref ore be discharged home. He was instructed on the importance of establishing a primary care physician in order to monitor his blood pressure and to see whether or not he will need initiation of antihype rtensive and also for just routine screening such as cholesterol, prostate, and colon cancer for exam ple. These were all discussed with the patient and he is being discharged home today.
--- NOTE | 2017-10-09 23:21 | PQF ---
WADE SARAVIA TONI MD [id number] CLINICAL DOCUMENTATION CLARIFICATION FORM: POST DISCHARGE Addendum to original discharge summary date: ____ Late entry note date: __ DATE: 10/09/17 ATTN: Dr. Quiles Please exercise your independent, professional judgment in responding to the clarification form. Clinical indicators are provided on the bottom of this form for your review Diagnosis: acute respiratory failure Present on Admission (POA): [ X ] Yes [ ] No [ ] Unable to determine Coding guidelines require hospitals to identify whether a diagnosis was present on admission (POA) or not. To accurately assign the appropriate POA indicator, this information must be clearly documented within the medical record. CLINICAL INDICATORS - SIGNS / SYMPTOMS / LABS COPD excercebation, demand ischemia, respiratory rate of 22/min , sats @ 99% on admission RISK FACTORS: COPD excerebation TREATMENT: duonebs, solumedrol, hydration and augmentin (This form is maintained as a part of the permanent medical record) 2014 [employer] All Rights Reserved EMIL Friedman, CCS [email or web address] [phone] [email or web address]
== END 2017-10-03 18:21 | disposition home or self-care (01) | DRG 189 ==
LOC: ERS 16:45 → 2NO 18:30
PROVIDERS: ADMIT Internal Medicine; ATTEND Internal Medicine
DX: J96.21 Acute and chronic respiratory failure with hypoxia (principal); I24.8 Other forms of acute ischemic heart disease; I50.32 Chronic diastolic (congestive) heart failure; J44.1 Chronic obstructive pulmonary disease with (acute) exacerbation; R03.0 Elevated blood-pressure reading, without diagnosis of hypertension; F17.210 Nicotine dependence, cigarettes, uncomplicated
CPT/HCPCS: 36415; 36416; 71045; 80048; 80053; 80061; 80306; 82553; 83880; 84484; 85025; 87040; 87070; 87205; 93005; 93306; 94640; 96365; 96367; 96375; J1650; J1956; J2920; J2930; J3475; J7620

== ENCOUNTER 2018-02-28 04:15 | Emergency (ER) | payer MEDICARE ==
[2018-02-28] MEDS ORDERED: Ampicillin/Sulbactam 3 GM in Sodium Chloride 0.9% 100 ML IVPB SCH (04:30)
== END 2018-02-28 06:25 | disposition home or self-care (01) ==
LOC: ERS 04:15
DX: K04.7 Periapical abscess without sinus (principal); R22.0 Localized swelling, mass and lump, head; J44.9 Chronic obstructive pulmonary disease, unspecified; E78.00 Pure hypercholesterolemia, unspecified; F17.210 Nicotine dependence, cigarettes, uncomplicated
CPT/HCPCS: 96365; J0295; J7050

== ENCOUNTER 2020-09-13 23:22 | Emergency (ER) | payer MEDICARE, MEDICAID ==
[2020-09-13 23:30] LABS: Actual Bicarbonate (HCO3a) 23.8 mEq/L (22-28); Analyzer IN Cardio ER; Base Excess (BEa) -2.9 mEq/L (-2.0 to +3.0); Calcium, Ionized (arterial) 1.19 mmol/L (1.12-1.30); Carboxyhemoglobin (COHb) 3.6 gm% (0.0-3.0); Hemoglobin (Hb) 14.4 g/dL (14.0-18.0); Potassium - ABG Lab 3.66 mmol/L (3.70-5.30); pH, Arterial 7.31 (7.35-7.45)
[2020-09-13 23:32] LABS: O2 Tension (PaO2), arterial 625.1 mmHg (> 70.0)
[2020-09-13 23:33] LABS: Puncture Site RRA
[2020-09-13 23:37] LABS: #Eosinphils 0.2 thou/uL (0.0-0.7); #Lymphocytes 1.7 thou/uL (1.20-3.40); #Monocytes 0.7 thou/uL (0.11-0.59); #Neutrophils 2.3 thou/uL (1.40-6.50); %Eosinophils 3.6 % (0.0-10.0); %Lymphocytes 35.1 % (21.0-51.0); %Monocytes 13.5 % (0.0-10.0); %Neutrophils 47.8 % (42.0-75.0); Hemoglobin 13.6 g/dL (14.0-18.0); Mean Corpuscular HGB CONC 32.4 g/dL (32.0-36.0); Mean Corpuscular Hemoglobin 32.2 pg (27.0-31.0); Mean Corpuscular Volume 99.3 fL (78.0-98.0); Mean Platelet Volume 6.1 fL (7.4-10.4); Platelet Count 218 thou/uL (130-400); RBC Distribution Width 13.8 % (11.5-14.5); Red Blood Cell (RBC) Count 4.23 mill/uL (4.70-6.10); White Blood Cell (WBC) Count 4.9 thou/uL (4.8-10.8)
[2020-09-13] MEDS ORDERED: Magnesium 2 GM/50 ML BAG (IN WATER) ONE (23:44)
[2020-09-13] MEDS ORDERED: Fentanyl CADD 100 ML IV SCH (23:45)
[2020-09-14 00:04] LABS: ALT (SGPT) 16 U/L (8-55); AST (SGOT) 28 U/L (5-34); Albumin 3.6 g/dL (3.4-4.8); Alkaline Phosphatase 58 U/L (40-110); Anion Gap 13 mmol/L (10-20); BUN (Urea Nitrogen) 9 mg/dL (8.4-25.7); Bilirubin, Total 1.1 mg/dL (0.2-1.2); Calc. Creatinine Clearance 0 mL/min (70-130); Calcium 8.4 mg/dL (7.8-10.44); Carbon Dioxide 23 mmol/L (23-31); Chloride 100 mmol/L (98-107); Glucose 84 mg/dL (80-115); Potassium 4.2 mmol/L (3.5-5.1); Protein, Total 6.6 g/dL (5.8-8.1); Sodium 132 mmol/L (136-145)
[2020-09-14] MEDS ORDERED: methylPREDNISolone Sod Succ/PF 125 MG/2 ML VIAL ONE (00:05)
[2020-09-14 00:07] LABS: Bacteria/HPF None Seen HPF (None Seen); Bilirubin Negative (Negative); Blood, Urine 2+ (Negative); Clarity Clear (Clear); Glucose, Urine (Dipstick) Normal (Negative); Ketone, Urine Trace mg/dL (Negative); Leukocyte Negative Leu/uL (Negative); Nitrite Negative (Negative); Protein, Urine (Dipstick) Negative (Neg-Trace); Squamous Epithelial 0-3 HPF (0-3); Urobilinogen Normal mg/dL (Less than 2); WBC/HPF 0-3 HPF (0-3)
[2020-09-14] MEDS ORDERED: Propofol 1,000 MG/100 ML VIAL IV ONE (00:14)
[2020-09-14 00:23] LABS: CKMB 9.9 ng/mL (0-6.6)
[2020-09-14] MEDS ORDERED: Acetaminophen 325 MG TAB PO PRN (01:22)
[2020-09-14] MEDS ORDERED: Acetaminophen 650 MG Suppository PR PRN (01:22)
[2020-09-14 01:55] LABS: SARS-CoV-2 NAA Rapid Test Not Detected (NotDetected)
[2020-09-14] MEDS ORDERED: Ventilator Sedation Protocol 1 EACH FS SCH (02:00)
[2020-09-14] MEDS ORDERED: Morphine 2 MG/ML VIAL SLOW IVP PRN (02:15)
[2020-09-14] MEDS ORDERED: DISCONTINUE PREVIOUS NARCOTIC PAIN MEDICATIONS AND BENZODIAZEPINES FS SCH (02:15)
[2020-09-14] MEDS ORDERED: Propofol 1,000 MG/100 ML VIAL IV PRN (02:15)
[2020-09-14] MEDS ORDERED: Propofol BOLUS 1,000 MG/100 ML VIAL IV PRN (02:15)
[2020-09-14] MEDS ORDERED: Fentanyl BOLUS 250 ML IVPB PRN (02:15)
[2020-09-14] MEDS ORDERED: Lorazepam 2 MG/ML VIAL SLOW IVP PRN (02:15)
[2020-09-14] MEDS ORDERED: Azithromycin 500 MG in Sodium Chloride 0.9% 250 ML 250 ML IVPB SCH (03:00)
[2020-09-14] MEDS ORDERED: methylPREDNISolone Sod Succ 40 MG VIAL IVP SCH (09:00)
[2020-09-14] MEDS ORDERED: Enoxaparin Sodium 40 MG/0.4 ML SYRINGE SC SCH (09:00)
== END 2020-09-14 04:30 | disposition short-term general hospital (02) ==
LOC: ERS 23:22
DX: J96.90 Respiratory failure, unspecified, unspecified whether with hypoxia or hypercapnia (principal); J44.9 Chronic obstructive pulmonary disease, unspecified; E78.00 Pure hypercholesterolemia, unspecified; F17.210 Nicotine dependence, cigarettes, uncomplicated
CPT/HCPCS: 36600; 71045; 80053; 82553; 82805; 83605; 83880; 84484; 85025; 87040; 87086; 93005; 94002; J2270; U0002; 36415; 51702; 81003; 81015; 96365; 96366; 96367; 96375; 99285; J2704; J2930; J3475

== ENCOUNTER 2020-11-03 12:50 | Emergency (ER) | payer MEDICARE, MEDICAID ==
[2020-11-03] MEDS ORDERED: Ondansetron PF 4 MG/2 ML Vial ONE (13:33)
[2020-11-03] MEDS ORDERED: Morphine 4 MG/ML VIAL ONE (13:33)
[2020-11-03 14:05] LABS: ALT (SGPT) 11 U/L (8-55); AST (SGOT) 16 U/L (5-34); Albumin 4.1 g/dL (3.4-4.8); Alkaline Phosphatase 68 U/L (40-110); Anion Gap 17 mmol/L (10-20); BUN (Urea Nitrogen) 8 mg/dL (8.4-25.7); Bilirubin, Total 0.7 mg/dL (0.2-1.2); Calc. Creatinine Clearance 0 mL/min (70-130); Calcium 9.8 mg/dL (7.8-10.44); Carbon Dioxide 25 mmol/L (23-31); Chloride 99 mmol/L (98-107); Globulin 3.4 g/dL (2.4-3.5); Glucose 84 mg/dL (80-115); Lipase 10 U/L (8-78); Potassium 4.5 mmol/L (3.5-5.1); Protein, Total 7.5 g/dL (5.8-8.1); Sodium 136 mmol/L (136-145)
[2020-11-03 14:11] LABS: Hemoglobin 15.7 g/dL (14.0-18.0); Mean Corpuscular HGB CONC 32.2 g/dL (32.0-36.0); Mean Corpuscular Hemoglobin 32.1 pg (27.0-31.0); Mean Corpuscular Volume 99.6 fL (78.0-98.0); Mean Platelet Volume 6.5 fL (7.4-10.4); Platelet Count 275 thou/uL (130-400); RBC Distribution Width 13.9 % (11.5-14.5); Red Blood Cell (RBC) Count 4.89 mill/uL (4.70-6.10); White Blood Cell (WBC) Count 6.3 thou/uL (4.8-10.8)
[2020-11-03 14:18] LABS: #Basophils 0.1 thou/uL (0.0-0.2); #Eosinphils 0.1 thou/uL (0.0-0.7); #Lymphocytes 1.8 thou/uL (1.20-3.40); #Monocytes 0.7 thou/uL (0.11-0.59); #Neutrophils 3.6 thou/uL (1.40-6.50); %Basophils 0.9 % (0.0-1.0); %Eosinophils 1.4 % (0.0-10.0); %Lymphocytes 29.1 % (21.0-51.0); %Monocytes 10.8 % (0.0-10.0); %Neutrophils 57.8 % (42.0-75.0); Band 5 % (5-11); Blast 1 % (0-0); Eosinophils 1 % (0-10); Lymphocytes 34 % (21-51); MDiff Complete? YES; Metamyelocyte 1 % (0-0); Monocytes 4 % (0-10); Myelocyte 1 % (0-0); Neutrophil 50 % (42-75); Reactive Lymphocytes 1 % (0-10); Reflex for Review?? YES
[2020-11-03 15:07] LABS: Bacteria/HPF 4+ HPF (None Seen); Bilirubin Negative (Negative); Blood, Urine 2+ (Negative); Clarity Cloudy (Clear); Glucose, Urine (Dipstick) Normal (Negative); Ketone, Urine 10 mg/dL (Negative); Leukocyte 500 Leu/uL (Negative); Nitrite 2+ (Negative); Protein, Urine (Dipstick) 30 mg/dL (Neg-Trace); RBC/HPF 21-50 HPF (0-3); Specific Gravity, Urine 1.034 (1.002-1.036); Squamous Epithelial None Seen HPF (0-3); Urobilinogen Normal mg/dL (Less than 2); WBC/HPF Greater than 50 HPF (0-3); pH, Urine 6.5 (5.0-9.0)
== END 2020-11-03 16:22 | disposition home or self-care (01) ==
LOC: ERS 12:50
DX: N39.0 Urinary tract infection, site not specified (principal); N40.1 Benign prostatic hyperplasia with lower urinary tract symptoms; R33.8 Other retention of urine; N13.8 Other obstructive and reflux uropathy; K31.89 Other diseases of stomach and duodenum; J44.9 Chronic obstructive pulmonary disease, unspecified; E78.00 Pure hypercholesterolemia, unspecified; F17.210 Nicotine dependence, cigarettes, uncomplicated; Z79.899 Other long term (current) drug therapy
CPT/HCPCS: 51702; 74177; 80053; 81003; 81015; 83690; 85025; 85060; 93005; 96374; 96375; J2270; J2405

== ENCOUNTER 2021-02-28 10:49 | Outpatient (CLI) | payer MEDICARE, MEDICAID | END 2021-02-28 10:50 | disposition home or self-care (01) | LOC: RAD-FRANK 10:49 | PROVIDERS: ATTEND Nurse Practitioner Family | DX: J44.9 Chronic obstructive pulmonary disease, unspecified (principal); J98.4 Other disorders of lung | CPT/HCPCS: 71046 ==

== ENCOUNTER 2021-07-14 08:38 | Outpatient (CLI) | payer MEDICARE, MEDICAID | END 2021-07-14 08:39 | disposition home or self-care (01) | LOC: RAD-FRANK 08:38 | PROVIDERS: ATTEND Nurse Practitioner Family | DX: R05.9 Cough, unspecified (principal); M79.672 Pain in left foot | CPT/HCPCS: 71046 ==

== ENCOUNTER 2022-04-23 15:21 | Emergency (ER) | payer MEDICARE, MEDICAID ==
[2022-04-23] MEDS ORDERED: Acetaminophen 500 MG TAB ONE (16:59)
== END 2022-04-23 17:20 | disposition home or self-care (01) ==
LOC: ERS 15:21
DX: M51.36 Other intervertebral disc degeneration, lumbar region (principal); M50.30 Other cervical disc degeneration, unspecified cervical region; M47.816 Spondylosis without myelopathy or radiculopathy, lumbar region; M47.812 Spondylosis without myelopathy or radiculopathy, cervical region; J44.9 Chronic obstructive pulmonary disease, unspecified; F17.210 Nicotine dependence, cigarettes, uncomplicated
CPT/HCPCS: 70450; 72125; 72128; 72131; 93005

== ENCOUNTER 2022-05-16 10:58 | Outpatient (CLI) | payer OTHER, MEDICAID ==
[~2022-05-16 10:58] MED LIST: Magnevist 469MG/ML 20 ML VIAL ONE
== END 2022-05-16 10:59 | disposition home or self-care (01) ==
LOC: MRI 10:58
PROVIDERS: ATTEND Internal Medicine Cardiovascular Disease
DX: R29.898 Other symptoms and signs involving the musculoskeletal system (principal)
CPT/HCPCS: 36415; 70553; 80053; 80061; A9579

== ENCOUNTER 2023-02-26 14:42 | Outpatient (CLI) | payer OTHER, MEDICAID | END 2023-02-26 14:43 | disposition home or self-care (01) | LOC: RAD-FRANK 14:42 | PROVIDERS: ATTEND Nurse Practitioner Family | DX: J44.9 Chronic obstructive pulmonary disease, unspecified (principal); J98.4 Other disorders of lung | CPT/HCPCS: 71046 ==

== ENCOUNTER 2023-07-14 18:11 | Emergency (ER) | payer OTHER ==
[~2023-07-14 18:11] MED LIST changes: +Iopamidol-370 76% 500 ML MDV (1 ML CHARGE) ONE; -Magnevist 469MG/ML 20 ML VIAL ONE
[2023-07-14 19:29] LABS: Hemoglobin 12.8 g/dL (14.0-18.0); Manual Diff?? YES; Mean Corpuscular HGB CONC 33.7 g/dL (32.0-36.0); Mean Corpuscular Hemoglobin 32.5 pg (27.0-31.0); Mean Corpuscular Volume 96.4 fl (78.0-98.0); Platelet Count 170 10x3/uL (130-400); Red Blood Cell (RBC) Count 3.94 mill/uL (4.70-6.10); White Blood Cell (WBC) Count 4.5 10x3/uL (4.8-10.8)
[2023-07-14 19:30] LABS: Delete Auto Diff?? YES
[2023-07-14 19:51] LABS: Band 1 % (5-11); Burr Cells SLIGHT = 2-5 cells HPF (0-1); CellaVision Operator ID LAB.KB; Eosinophils 3 % (0-10); Lymphocytes 16 % (21-51); Monocytes 13 % (0-10); Neutrophil 64 % (42-75); Ovalocytes SLIGHT = 2-5 cells HPF (0-1); Platelet Adequacy Comment Platelets Normal; Polychromasia SLIGHT = 2-3 cells HPF (0-2); Total Cell Count 100
[2023-07-14 19:54] LABS: ALT (SGPT) 31 U/L (8-55); AST (SGOT) 22 U/L (5-34); Albumin 3.5 g/dL (3.4-4.8); Alkaline Phosphatase 57 U/L (40-110); Anion Gap 10 mmol/L (10-20); BUN (Urea Nitrogen) 11 mg/dL (8.4-25.7); Bilirubin, Total 0.6 mg/dL (0.2-1.2); Calc. Creatinine Clearance 0 mL/min (70-130); Calcium 8.7 mg/dL (7.8-10.44); Carbon Dioxide 24 mmol/L (23-31); Chloride 106 mmol/L (98-107); Estimated GFR 98; Globulin 2.7 g/dL (2.4-3.5); Glucose 89 mg/dL (83-110); Protein, Total 6.2 g/dL (5.8-8.1); Sodium 136 mmol/L (136-145)
[2023-07-14] MEDS ORDERED: Lidocaine 2% 6 ML (Jelly) SYR ONE (21:25)
[2023-07-14 22:05] LABS: Bacteria/HPF None Seen HPF (None Seen); Bilirubin Negative (Negative); Blood, Urine Negative (Negative); CAUTI Indications for Culture Pelvic or flank pain; Clarity Clear (Clear); Glucose, Urine (Dipstick) Normal (Negative); Ketone, Urine Negative (Negative); Leukocyte Negative Leu/uL (Negative); Nitrite Negative (Negative); Protein, Urine (Dipstick) Negative (Neg-Trace); RBC/HPF 0-3 HPF (0-3); Squamous Epithelial 0-3 HPF (0-3); Urobilinogen Normal mg/dL (Less than 2); WBC/HPF 0-3 HPF (0-3)
[2023-07-14 22:06] LABS: Specific Gravity, Urine 1.046 (1.002-1.036); Urine Culture Reflex No No
== END 2023-07-14 22:16 | disposition home or self-care (01) ==
LOC: ERS 18:11
DX: R10.30 Lower abdominal pain, unspecified (principal); R33.9 Retention of urine, unspecified; J44.9 Chronic obstructive pulmonary disease, unspecified; F17.210 Nicotine dependence, cigarettes, uncomplicated
CPT/HCPCS: 36415; 51702; 51798; 74177; 80053; 81001; 85025; Q9967

== ENCOUNTER 2025-02-16 22:10 | Emergency (ER) | payer MEDICARE ==
[2025-02-16 22:59] LABS: #Basophils 0.03 10x3/uL (0.0-0.2); #Eosinophils 0.14 10x3/uL (0.0-0.7); #Monocytes 0.40 10x3/uL (0.11-0.59); #Neutrophils 2.32 10x3/uL (1.40-6.50); %Basophils 0.8 % (0.0-1.0); %Eosinophils 3.5 % (0.0-10.0); %Lymphocytes 27.1 % (21.0-51.0); %Monocytes 10.1 % (0.0-10.0); %Neutrophils 58.2 % (42.0-75.0); Hematocrit 40.5 % (42.0-52.0); Hemoglobin 12.5 g/dL (14.0-18.0); Mean Corpuscular Hemoglobin 30.6 pg (27.0-31.0); Mean Corpuscular Volume 99.3 fL (78.0-98.0); Platelet Count 162 10x3/uL (130-400); Red Blood Cell (RBC) Count 4.08 mill/uL (4.70-6.10); White Blood Cell (WBC) Count 3.98 10x3/uL (4.8-10.8)
[2025-02-16] MEDS ORDERED: predniSONE 20 MG TAB ONE (23:16)
[2025-02-16 23:24] LABS: ALT (SGPT) 20 U/L (Less than 45); AST (SGOT) 31 U/L (11-34); Albumin 3.1 g/dL (3.1-4.5); Alkaline Phosphatase 66 U/L (40-110); Anion Gap 13 mmol/L (10-20); BUN (Urea Nitrogen) 12 mg/dL (8.4-25.7); Bilirubin, Total 0.6 mg/dL (0.3-1.2); Calc. Creatinine Clearance 0 mL/min (70-130); Calcium 9.4 mg/dL (7.8-10.44); Carbon Dioxide 29 mmol/L (23-31); Chloride 103 mmol/L (98-107); Globulin 3.5 g/dL (2.4-3.5); Glucose 100 mg/dL (83-110); Potassium 4.5 mmol/L (3.5-5.1); Sodium 140 mmol/L (136-145)
[2025-02-17] MEDS ORDERED: Acetaminophen 500 MG TAB ONE (00:18)
== END 2025-02-17 02:16 | disposition home or self-care (01) ==
LOC: ERS 22:10
DX: J44.1 Chronic obstructive pulmonary disease with (acute) exacerbation (principal); F17.210 Nicotine dependence, cigarettes, uncomplicated
CPT/HCPCS: 36415; 71045; 80053; 85025; J7512; J7620

== ENCOUNTER 2025-04-04 19:15 | Emergency (ER) | payer MEDICARE | END 2025-04-04 23:20 | disposition home or self-care (01) | LOC: ERS 19:15 | DX: T83.018A Breakdown (mechanical) of other urinary catheter, initial encounter (principal); J44.9 Chronic obstructive pulmonary disease, unspecified; F17.210 Nicotine dependence, cigarettes, uncomplicated | CPT/HCPCS: 51705 ==

== ENCOUNTER 2025-04-15 09:09 | Emergency (ER) | payer MEDICARE | END 2025-04-15 09:50 | disposition home or self-care (01) | LOC: ERS 09:09 | DX: T83.020A Displacement of cystostomy catheter, initial encounter (principal); J44.9 Chronic obstructive pulmonary disease, unspecified; F17.210 Nicotine dependence, cigarettes, uncomplicated | CPT/HCPCS: 51705 ==

== ENCOUNTER 2025-04-30 12:21 | Outpatient (CLI) | payer MEDICARE ==
[2025-05-04 13:19] LABS: Estimated GFR - POC 92.0
== END 2025-04-30 12:22 | disposition home or self-care (01) ==
LOC: MRI 12:21
PROVIDERS: ATTEND Internal Medicine Hematology & Oncology
DX: C34.12 Malignant neoplasm of upper lobe, left bronchus or lung (principal); J34.89 Other specified disorders of nose and nasal sinuses; R90.82 White matter disease, unspecified; R91.8 Other nonspecific abnormal finding of lung field; J90 Pleural effusion, not elsewhere classified; I25.85 Chronic coronary microvascular dysfunction
CPT/HCPCS: 36415; 70553; 76376; 78815; 82565; A9552

== ENCOUNTER 2025-05-16 07:42 | Inpatient (IN) | payer MEDICARE ==
[2025-05-16 08:42] LABS: #Basophils 0.04 10x3/uL (0.0-0.2); #Eosinophils 0.07 10x3/uL (0.0-0.7); #Monocytes 0.58 10x3/uL (0.11-0.59); #Neutrophils 1.52 10x3/uL (1.40-6.50); %Basophils 1.2 % (0.0-1.0); %Eosinophils 2.2 % (0.0-10.0); %Lymphocytes 31.3 % (21.0-51.0); %Monocytes 18.0 % (0.0-10.0); %Neutrophils 47.0 % (42.0-75.0); Hematocrit 41.4 % (42.0-52.0); Hemoglobin 12.7 g/dL (14.0-18.0); Mean Corpuscular Hemoglobin 30.8 pg (27.0-31.0); Mean Corpuscular Volume 100.5 fL (78.0-98.0); Platelet Count 157 10x3/uL (130-400); Red Blood Cell (RBC) Count 4.12 mill/uL (4.70-6.10); White Blood Cell (WBC) Count 3.23 10x3/uL (4.8-10.8)
[2025-05-16 09:02] LABS: ALT (SGPT) 23 U/L (Less than 45); AST (SGOT) 29 U/L (11-34); Albumin 2.8 g/dL (3.1-4.5); Alkaline Phosphatase 65 U/L (40-110); Anion Gap 13 mmol/L (10-20); BUN (Urea Nitrogen) 10 mg/dL (8.4-25.7); Bilirubin, Total 0.7 mg/dL (0.3-1.2); Calc. Creatinine Clearance 0 mL/min (70-130); Calcium 9.4 mg/dL (7.8-10.44); Carbon Dioxide 31 mmol/L (23-31); Chloride 99 mmol/L (98-107); Globulin 3.5 g/dL (2.4-3.5); Glucose 83 mg/dL (83-110); Potassium 4.8 mmol/L (3.5-5.1); Sodium 138 mmol/L (136-145)
[2025-05-16] MEDS ORDERED: Furosemide 40 MG (4 mL) VIAL ONE (09:51)
[2025-05-16 10:19] LABS: Bacteria/HPF 3+ HPF (None Seen); CAUTI Indications for Culture Pelvic or flank pain; Glucose, Urine (Dipstick) Normal (Negative); Leukocyte 500 Leu/uL (Negative); Protein, Urine (Dipstick) 50 mg/dL (Neg-Trace); Specific Gravity, Urine 1.011 (1.002-1.036); WBC/HPF 21-50 HPF (0-3)
[2025-05-16 10:35] LABS: Urine Culture Reflex Yes Yes
[2025-05-16] MEDS ORDERED: Ondansetron PF 4 MG/2 ML Vial IVP PRN (11:25)
[2025-05-16] MEDS ORDERED: LevoFLOXacin 750 mg/D5W 150 ml Premix Bag ONE (11:26)
[2025-05-16] MEDS ORDERED: Albuterol 2.5 MG (3 mL) NEB NEB PRN (15:01)
[2025-05-16] MEDS: predniSONE 20 MG TAB PO SCH (15:17)
[2025-05-16] MEDS ORDERED: Metoprolol Succinate XL 25 MG ER.TAB PO SCH (15:30)
[2025-05-16 16:00] LABS: Cocaine Metabolite Screen PRELIM POSITIVE (Negative); THC/Cannabinoid Screen Negative (Negative); Tricyclic Screen Negative (Negative)
[2025-05-16 17:21] LABS: Magnesium 1.7 mg/dL (1.6-2.6)
[2025-05-16] MEDS: Albuterol 2.5 MG (3 mL) NEB NEB SCH (19:29)
[2025-05-16] MEDS: Mometasone 100 MCG/Formoterol 5 MCG 120 PUFF INHALER INH SCH (19:30)
[2025-05-16] MEDS: Apixaban 5 MG TAB PO SCH (20:03)
[2025-05-16] MEDS: Magnesium Sulfate In Water 4 GM in Premix 1 BAG IVPB SCH (20:03)
[2025-05-16] MEDS ORDERED: Sacubitril 24MG/Valsartan 26 MG TAB PO SCH (21:00)
[2025-05-16] MEDS: Acetaminophen 325 MG TAB PO PRN (23:12)
[2025-05-17] MEDS: Furosemide 40 MG (4 mL) VIAL SLOW IVP SCH ×2 (05:28→08:23)
[2025-05-17 05:34] LABS: #Basophils Less than 0.03 10x3/uL (0.0-0.2); #Eosinophils Less than 0.03 10x3/uL (0.0-0.7); #Monocytes 0.23 10x3/uL (0.11-0.59); #Neutrophils 2.14 10x3/uL (1.40-6.50); %Basophils 0.4 % (0.0-1.0); %Eosinophils 0.0 % (0.0-10.0); %Lymphocytes 15.3 % (21.0-51.0); %Monocytes 8.2 % (0.0-10.0); %Neutrophils 76.1 % (42.0-75.0); Hematocrit 37.3 % (42.0-52.0); Hemoglobin 12.0 g/dL (14.0-18.0); Mean Corpuscular Hemoglobin 31.3 pg (27.0-31.0); Mean Corpuscular Volume 97.1 fL (78.0-98.0); Platelet Count 150 10x3/uL (130-400); Red Blood Cell (RBC) Count 3.84 mill/uL (4.70-6.10); White Blood Cell (WBC) Count 2.81 10x3/uL (4.8-10.8)
[2025-05-17 05:52] LABS: ALT (SGPT) 18 U/L (Less than 45); AST (SGOT) 21 U/L (11-34); Albumin 2.6 g/dL (3.1-4.5); Alkaline Phosphatase 61 U/L (40-110); Anion Gap 10 mmol/L (10-20); BUN (Urea Nitrogen) 11 mg/dL (8.4-25.7); Bilirubin, Total 0.6 mg/dL (0.3-1.2); Calc. Creatinine Clearance 119 mL/min (70-130); Calcium 9.1 mg/dL (7.8-10.44); Carbon Dioxide 33 mmol/L (23-31); Chloride 96 mmol/L (98-107); Globulin 3.3 g/dL (2.4-3.5); Glucose 147 mg/dL (83-110); Magnesium 2.1 mg/dL (1.6-2.6); Potassium 4.6 mmol/L (3.5-5.1); Sodium 134 mmol/L (136-145)
[2025-05-17] MEDS: Aspirin Chewable 81 MG TAB PO SCH (08:23)
[2025-05-17] MEDS: Multivitamin W/ Minerals 1 TAB PO SCH (08:23)
[2025-05-17] MEDS: Dapagliflozin Propanediol 10 MG TAB PO SCH (08:23)
[2025-05-17] MEDS: predniSONE 20 MG TAB PO SCH (08:23)
[2025-05-17] MEDS: Sacubitril 24MG/Valsartan 26 MG TAB PO SCH (08:29)
[2025-05-17] MEDS ORDERED: Metoprolol Succinate XL 25 MG ER.TAB PO SCH (09:00)
[2025-05-18 04:24] LABS: #Basophils 0.03 10x3/uL (0.0-0.2); #Eosinophils 0.10 10x3/uL (0.0-0.7); #Monocytes 0.68 10x3/uL (0.11-0.59); #Neutrophils 2.29 10x3/uL (1.40-6.50); %Basophils 0.7 % (0.0-1.0); %Eosinophils 2.3 % (0.0-10.0); %Lymphocytes 29.1 % (21.0-51.0); %Monocytes 15.6 % (0.0-10.0); %Neutrophils 52.3 % (42.0-75.0); Hematocrit 39.1 % (42.0-52.0); Hemoglobin 12.5 g/dL (14.0-18.0); Mean Corpuscular Hemoglobin 31.3 pg (27.0-31.0); Mean Corpuscular Volume 97.8 fL (78.0-98.0); Platelet Count 153 10x3/uL (130-400); Red Blood Cell (RBC) Count 4.00 mill/uL (4.70-6.10); White Blood Cell (WBC) Count 4.37 10x3/uL (4.8-10.8)
[2025-05-18 05:00] LABS: Anion Gap 10 mmol/L (10-20); BUN (Urea Nitrogen) 16 mg/dL (8.4-25.7); Calc. Creatinine Clearance 108 mL/min (70-130); Calcium 9.2 mg/dL (7.8-10.44); Carbon Dioxide 35 mmol/L (23-31); Chloride 98 mmol/L (98-107); Glucose 93 mg/dL (83-110); Potassium 4.1 mmol/L (3.5-5.1); Sodium 139 mmol/L (136-145)
[2025-05-18] MEDS: Metoprolol Succinate XL 25 MG ER.TAB PO SCH (08:39)
[2025-05-19 04:36] LABS: #Basophils 0.03 10x3/uL (0.0-0.2); #Eosinophils 0.14 10x3/uL (0.0-0.7); #Monocytes 0.62 10x3/uL (0.11-0.59); #Neutrophils 2.18 10x3/uL (1.40-6.50); %Basophils 0.7 % (0.0-1.0); %Eosinophils 3.3 % (0.0-10.0); %Lymphocytes 29.0 % (21.0-51.0); %Monocytes 14.8 % (0.0-10.0); %Neutrophils 52.0 % (42.0-75.0); Hematocrit 40.1 % (42.0-52.0); Hemoglobin 12.8 g/dL (14.0-18.0); Mean Corpuscular Hemoglobin 31.1 pg (27.0-31.0); Mean Corpuscular Volume 97.6 fL (78.0-98.0); Platelet Count 170 10x3/uL (130-400); Red Blood Cell (RBC) Count 4.11 mill/uL (4.70-6.10); White Blood Cell (WBC) Count 4.20 10x3/uL (4.8-10.8)
[2025-05-19 04:57] LABS: Anion Gap 11 mmol/L (10-20); BUN (Urea Nitrogen) 11 mg/dL (8.4-25.7); Calc. Creatinine Clearance 113 mL/min (70-130); Calcium 9.2 mg/dL (7.8-10.44); Carbon Dioxide 35 mmol/L (23-31); Chloride 96 mmol/L (98-107); Glucose 88 mg/dL (83-110); Magnesium 1.6 mg/dL (1.6-2.6); Potassium 4.4 mmol/L (3.5-5.1); Sodium 138 mmol/L (136-145)
[2025-05-19 06:12] VITALS: BMI 25.2
[2025-05-19] MEDS ORDERED: FLU (Fluad Triv) 25-26 (65UP)PF 45 MCG/0.5 ML Syringe IM ONE (09:00)
[2025-05-19 11:32] VITALS: TEMP 98.1
[2025-05-19 14:57] VITALS: BP 109/69
[2025-05-20] MEDS ORDERED: Furosemide 20 MG TAB PO SCH (09:00)
== END 2025-05-19 14:30 | disposition home or self-care (01) | DRG 291 ==
LOC: ERS 07:42 → SUATTDRO 07:42 → ERHOLD 11:25 → 2NO 14:20
PROVIDERS: ADMIT Family Medicine; ATTEND Internal Medicine
DX: I11.0 Hypertensive heart disease with heart failure (principal); I50.23 Acute on chronic systolic (congestive) heart failure; N39.0 Urinary tract infection, site not specified; I47.20 Ventricular tachycardia, unspecified; J44.1 Chronic obstructive pulmonary disease with (acute) exacerbation; E78.00 Pure hypercholesterolemia, unspecified; J44.9 Chronic obstructive pulmonary disease, unspecified; F17.210 Nicotine dependence, cigarettes, uncomplicated; F10.90 Alcohol use, unspecified, uncomplicated; F14.10 Cocaine abuse, uncomplicated; Z86.718 Personal history of other venous thrombosis and embolism; I42.9 Cardiomyopathy, unspecified; Z85.118 Personal history of other malignant neoplasm of bronchus and lung; Z88.8 Allergy status to other drugs, medicaments and biological substances; Z98.890 Other specified postprocedural states; Z79.82 Long term (current) use of aspirin; Z79.899 Other long term (current) drug therapy; Z91.148 Patient's other noncompliance with medication regimen for other reason
CPT/HCPCS: 36415; 71045; 80048; 80053; 80306; 80307; 81001; 83605; 83735; 83880; 84484; 85025; 87040; 87070; 87077; 87086; 87149; 87186; 87205; 93005; 94640; 96365; 96375; 97139; J1940; J1956; J3475; J7512; J7611

== ENCOUNTER 2025-06-15 16:32 | Emergency (ER) | payer MEDICARE ==
[2025-06-15 17:41] LABS: #Basophils Less than 0.03 10x3/uL (0.0-0.2); #Eosinophils 0.11 10x3/uL (0.0-0.7); #Monocytes 0.75 10x3/uL (0.11-0.59); #Neutrophils 2.32 10x3/uL (1.40-6.50); %Basophils 0.5 % (0.0-1.0); %Eosinophils 2.6 % (0.0-10.0); %Lymphocytes 25.3 % (21.0-51.0); %Monocytes 17.4 % (0.0-10.0); %Neutrophils 54.0 % (42.0-75.0); Hematocrit 40.0 % (42.0-52.0); Hemoglobin 12.6 g/dL (14.0-18.0); Mean Corpuscular Hemoglobin 31.6 pg (27.0-31.0); Mean Corpuscular Volume 100.3 fL (78.0-98.0); Platelet Count 133 10x3/uL (130-400); Red Blood Cell (RBC) Count 3.99 mill/uL (4.70-6.10); White Blood Cell (WBC) Count 4.30 10x3/uL (4.8-10.8)
[2025-06-15 18:16] LABS: ALT (SGPT) 10 U/L (Less than 45); AST (SGOT) 17 U/L (11-34); Albumin 2.4 g/dL (3.1-4.5); Alkaline Phosphatase 65 U/L (40-110); Anion Gap 10 mmol/L (10-20); BUN (Urea Nitrogen) 12 mg/dL (8.4-25.7); Bilirubin, Total 0.4 mg/dL (0.3-1.2); Calc. Creatinine Clearance 0 mL/min (70-130); Calcium 8.7 mg/dL (7.8-10.44); Carbon Dioxide 32 mmol/L (23-31); Chloride 101 mmol/L (98-107); Globulin 3.3 g/dL (2.4-3.5); Glucose 87 mg/dL (83-110); Potassium 4.2 mmol/L (3.5-5.1); Sodium 139 mmol/L (136-145)
[2025-06-15 20:06] LABS: CAUTI Indications for Culture Dysuria,urgency,freq; Glucose, Urine (Dipstick) Normal (Negative); Leukocyte 500 Leu/uL (Negative); Protein, Urine (Dipstick) 300 mg/dL (Neg-Trace); RBC/HPF Greater than 50 HPF (0-3); Specific Gravity, Urine 1.025 (1.002-1.036); WBC/HPF Greater than 50 HPF (0-3)
[2025-06-15 20:07] LABS: Bacteria/HPF 1+ HPF (None Seen)
[2025-06-15 20:09] LABS: Urine Culture Reflex Yes Yes
[2025-06-15] MEDS ORDERED: cefTRIAXone (ROCEPHIN) 2 GM VIAL ONE (21:13)
== END 2025-06-15 23:27 ==
LOC: ERS 16:32
DX: N39.0 Urinary tract infection, site not specified (principal); J44.9 Chronic obstructive pulmonary disease, unspecified; F17.210 Nicotine dependence, cigarettes, uncomplicated
CPT/HCPCS: 71045; 80053; 81001; 83880; 85025; 87086; 93005; J0696; 51702; 87077; 87186; 96365